=== PATIENT | female | born 2000 | race African-American/Black ===

== ENCOUNTER 2023-10-06 15:01 | Emergency (ER) | payer OTHER ==
[~2023-10-06] VITALS: Ht 162.6 cm; Wt 68.0 kg
[2023-10-06] MEDS ORDERED: FENTANYL CITRATE/PF 50MCG/ML 2ML VIAL IV ONE ×2 (15:30→16:30)
[2023-10-06 15:43] VITALS: TEMP 97.9; O2SAT 98
[2023-10-06 16:53] VITALS: BP 100/61; PULSE 76; RESP 19
[2023-10-06] MEDS ORDERED: LIDOCAINE HCL 1% 20ML VIAL (Pyxis) INJ INFIL ONE (17:30)
[2023-10-06] MEDS ORDERED: KETOROLAC 30MG/ML VIAL IV ONE (18:00)
== END 2023-10-06 17:58 | disposition left against medical advice (07) ==
LOC: ER 15:01
DX: S62.102A Fracture of unspecified carpal bone, left wrist, initial encounter for closed fracture (principal); S93.104A Unspecified dislocation of right toe(s), initial encounter; Z88.2 Allergy status to sulfonamides; V49.49XA Driver injured in collision with other motor vehicles in traffic accident, initial encounter; Y93.89 Activity, other specified; Y92.89 Other specified places as the place of occurrence of the external cause; Y99.8 Other external cause status
CPT/HCPCS: 73030; 73110; 73590; 73620; 96374; 96375; 96376; 99284; J3010; J1885; J3490; Z7610